=== PATIENT | female | born 1965 | race Caucasian/White ===

== ENCOUNTER → 2018-01-18 | Outpatient (CLI) | payer OTHER | LOC: RAD 08:51 | DX: M17.0 Bilateral primary osteoarthritis of knee (principal) ==

== ENCOUNTER 2023-02-01 13:34 | Outpatient (RCR) | payer OTHER ==
[~2023-02-01 13:34] MED LIST: CEPHALEXIN500 M1 PO
== END 2023-03-03 14:18 | disposition home or self-care (01) ==
LOC: PT 13:34
DX: Z96.652 Presence of left artificial knee joint (principal)

== ENCOUNTER 2023-06-03 08:00 | Outpatient (RCR) | payer OTHER | END 2023-07-03 | disposition home or self-care (01) | LOC: PT | DX: Z96.651 Presence of right artificial knee joint (principal) ==

== ENCOUNTER 2023-07-05 08:00 | Outpatient (RCR) | payer OTHER | END 2023-07-26 08:30 | disposition home or self-care (01) | LOC: PT 08:00 | DX: M25.561 Pain in right knee (principal); Z96.651 Presence of right artificial knee joint ==

== ENCOUNTER 2023-11-02 08:00 | Outpatient (RCR) | payer OTHER | END 2023-12-02 | LOC: PT | DX: M54.2 Cervicalgia (principal) ==